=== PATIENT | female | born 2000 | race Asian ===

== ENCOUNTER 2021-09-27 15:16 | Emergency (ER) | payer OTHER ==
[2021-09-27 15:45] LABS: BILIRUBIN,URINE NEGATIVE (NEGATIVE); GLUCOSE, URINE (UA) NEGATIVE (NEGATIVE); KETONES,URINE (UA) NEGATIVE (NEGATIVE); LEUKOCYTE ESTERASE, URINE NEGATIVE (NEGATIVE); NITRITE,URINE NEGATIVE (NEGATIVE); OCCULT BLOOD,URINE NEGATIVE (NEGATIVE); PROTEIN,URINE NEGATIVE (NEGATIVE); UROBILINOGEN,URINE 0.2 (NORMAL) E.U./dL (NORMAL)
[2021-09-27 15:49] LABS: CLARITY,URINE CLEAR (CLEAR); HCG UR QUAL NEGATIVE
[2021-09-27] MEDS ORDERED: SODIUM CHLORIDE 0.9% 1,000 ML IV STA (15:49)
[2021-09-27] MEDS ORDERED: ONDANSETRON 4 MG/2 ML VIAL IVP STA (15:49)
--- NOTE | 2021-09-27 15:50 | ED Physician Documentation ---
History of Present Illness - Stated complaint Stated Complaint: UPSET STOMACH - Chief complaint Chief Complaint: Abd Pain - History obtained from History obtained from: Patient - Additonal information Additional information: Otherwise healthy 20-year-old woman presents with mild abdominal pain and significant vomiting after eating a lot of street food last night. She denies fevers or diarrhea. No sick contacts or recent travel. Review of Systems Constitutional: denies: Fever, Chills Cardiac: denies: Pedal edema, Calf pain Respiratory: denies: Dyspnea, Cough GI: reports: Abdominal Pain, Nausea, Vomiting. denies: Constipation, Diarrhea : denies: Dysuria PD PAST MEDICAL HISTORY - Present Medications Home Medications: Ambulatory Orders Medication Instructions Recorded Confirmed Ondansetron Odt [Zofran] 4 mg TL Q6H PRN #10 tablet 09/27/21 - Allergies Allergies/Adverse Reactions: Allergies Allergy/AdvReac Type Severity Reaction Status Date / Time No Known Drug Allergies Allergy Verified 09/27/21 15:27 PD ED PE NORMAL - Vitals Vital signs reviewed: Yes - General General: Alert and oriented X 3, No acute distress - HEENT HEENT: PERRL, EOMI - Neck Neck: Supple, no meningeal sign, No bony TTP - Cardiac Cardiac: RRR (Some variability consistent with sinus arrhythmia), No murmur - Respiratory Respiratory: No respiratory distress, Clear bilaterally - Abdomen Abdomen: Normal bowel sounds, Soft, Non tender - Neuro Neuro: Alert and oriented X 3, Normal speech Results - Vitals Vitals: Vital Signs - 24 hr 09/27/21 09/27/21 15:23 15:26 Temperature 36.7 C 36.2 C L Heart Rate 66 65 Respiratory 16 18 Rate Blood Pressure 120/73 118/62 O2 Saturation 98 100 Oxygen O2 Source Room air - Labs Labs: Laboratory Tests 09/27/21 09/27/21 15:33 15:52 Sodium 136 Potassium 3.9 Chloride 102 Carbon Dioxide 27 Anion Gap 7.0 BUN 11 Creatinine 0.6 Estimated GFR (MDRD) 129 Glucose 98 Calcium 9.5 Total Bilirubin 1.0 AST 14 ALT 11 Alkaline Phosphatase 60 Total Protein 7.2 Albumin 4.4 Globulin 2.8 Albumin/Globulin Ratio 1.6 Lipase 31 Urine Color YELLOW Urine Clarity CLEAR Urine pH 6.0 Ur Specific [place] 1.025 Urine Protein NEGATIVE Urine Glucose (UA) NEGATIVE Urine Ketones NEGATIVE Urine Occult Blood NEGATIVE Urine Nitrite NEGATIVE Urine Bilirubin NEGATIVE Urine Urobilinogen 0.2 (NORMAL) Ur Leukocyte Esterase NEGATIVE Ur Microscopic Review NOT INDICATED Urine Culture Comments NOT INDICATED Urine HCG, Qual NEGATIVE PD MEDICAL DECISION MAKING - ED course ED course: 20-year-old with vomiting alone. Metabolic panel is negative as is her urine and urine test. After the administration of IV fluids and Zofran she was feeling much better and passed p.o. challenge. Remained nontender on reevaluation at 4:55 PM. Given close return precautions. Departure - Departure Disposition: 01 Home, Self Care Clinical Impression: Vomiting Condition: Good Record reviewed to determine appropriate education?: Yes Instructions: ED Nausea Vomiting Prescriptions: Ondansetron Odt [Zofran] 4 mg TL Q6H PRN #10 tablet PRN Reason: Nausea / Vomiting Comments: Return if worse or if not completely better from all of your symptoms at 7 AM tomorrow.
[2021-09-27 16:09] LABS: ALBUMIN 4.4 g/dL (3.2-5.5); ALBUMIN/GLOBULIN RATIO 1.6 (1.0-2.2); CALCIUM 9.5 mg/dL (8.5-10.3); CREATININE 0.6 mg/dL (0.4-1.0); POTASSIUM 3.9 mmol/L (3.5-5.0); TOTAL PROTEIN 7.2 g/dL (6.7-8.2)
[2021-09-27 17:20] VITALS: BP 118/63
== END 2021-09-27 17:19 | disposition home or self-care (01) ==
LOC: ED 15:16
DX: R11.10 Vomiting, unspecified (principal)
CPT/HCPCS: 36415; 80053; 81001; 81003; 81025; 83690; 85025; 87086; 96361; 96374; 99282

== ENCOUNTER 2022-01-17 22:40 | Emergency (ER) | payer OTHER ==
[2022-01-17 23:02] LABS: BASOPHILS # (AUTO) 0.1 10^3/uL (0.0-0.1); BASOPHILS % (AUTO) 0.8 %; EOSINOPHILS # (AUTO) 0.1 10^3/uL (0.0-0.7); EOSINOPHILS % (AUTO) 0.8 %; HCT - HEMATOCRIT 41.6 % (37.0-47.0); HGB - HEMOGLOBIN 13.7 g/dL (12.0-16.0); LYMPHOCYTES % (AUTO) 23.7 %; MEAN CORPUSCULAR HEMOGLOBIN 29.1 pg (27.0-31.0); MEAN CORPUSCULAR HGB CONC 32.9 g/dL (32.0-36.0); MEAN CORPUSCULAR VOLUME 88.5 fL (81.0-99.0); MEAN PLATELET VOLUME 9.5 fL (7.9-10.8); MONOCYTES # (AUTO) 0.5 10^3/uL (0.0-1.0); MONOCYTES % (AUTO) 6.4 %; NEUTROPHILS # (AUTO) 5.8 10^3/uL (1.5-6.6); NEUTROPHILS % (AUTO) 67.9 %; PLT - PLATELET COUNT 329 10^3/uL (130-450); RED CELL DISTRIBUTION WIDTH 11.1 % (12.0-15.0); WHITE BLOOD COUNT 8.5 x10^3/uL (4.8-10.8)
[2022-01-17 23:16] LABS: ALBUMIN 4.5 g/dL (3.2-5.5); ALBUMIN/GLOBULIN RATIO 1.6 (1.0-2.2); ALKALINE PHOSPHATASE 68 IU/L (42-121); ALT ALANINE AMINOTRANSFERASE 17 IU/L (10-60); AST ASPARTATE AMINOTRANSFERASE 16 IU/L (10-42); BILIRUBIN,TOTAL 0.6 mg/dL (0.2-1.0); CREATININE 0.5 mg/dL (0.4-1.0); ETOH - ETHANOL < 5.0 mg/dL; GFR - MDRD 157 (>89); GLUCOSE 102 mg/dL (70-100); LIPASE 34 U/L (22-51); TOTAL PROTEIN 7.4 g/dL (6.7-8.2)
[2022-01-17 23:17] LABS: MUDS CUTOFF CONCENTRATIONS CUTOFF CONC BELOW:
--- NOTE | 2022-01-17 23:17 | ED Physician Documentation ---
History of Present Illness - Stated complaint Stated Complaint: HAVING A BAD DAY - Chief complaint Chief Complaint: MHE - History obtained from History obtained from: Patient, EMS - Additonal information Additional information: The patient is brought to the emergency department by EMS for chief complaint of suicidal ideation and depression. Patient states is been going on for about the last few months especially but had started before that. She states the stress of her job at the [employer], as well as root relationship issues which she will not further specify a, as being triggers. She states that prior to joining the [employer] a little over a year ago, she never struggled with depression. She has had suicidal thoughts on and off but has never made any attempts. She was started on sertraline a few months ago and states this seems to have made things worse. She states that she is not suicidal at this very moment, but has thought about overdosing on her sertraline to try to kill herself. She states she was confiding in a friend about the way she was feeling and the friend became concerned and called EMS. EMS states that they were concerned because the patient did have a specific plan and they convinced her to come in, even though she was not suicidal right at the moment. The patient states that her family does not live close by, but that she does close with her sister and does confide in her. No other complaints at this time. The patient states she is physically otherwise healthy. She denies taking any extra of her pills today or any other time. Review of Systems Ten Systems: 10 systems reviewed and negative Constitutional: reports: Reviewed and negative Eyes: reports: Reviewed and negative Ears: reports: Reviewed and negative Nose: reports: Reviewed and negative Throat: reports: Reviewed and negative Cardiac: reports: Reviewed and negative Respiratory: reports: Reviewed and negative GI: reports: Reviewed and negative : reports: Reviewed and negative Skin: reports: Reviewed and negative Musculoskeletal: reports: Reviewed and negative Neurologic: reports: Reviewed and negative Psychiatric: reports: Depressed, Suicidal Endocrine: reports: Reviewed and negative Immunocompromised: reports: Reviewed and negative PD PAST MEDICAL HISTORY - Present Medications Home Medications: Ambulatory Orders Medication Instructions Recorded Confirmed Sertraline [Zoloft] 75 mg PO DAILY 01/17/22 01/17/22 - Allergies Allergies/Adverse Reactions: Allergies Allergy/AdvReac Type Severity Reaction Status Date / Time No Known Drug Allergies Allergy Verified 09/27/21 15:27 PD ED PE NORMAL - Vitals Vital signs reviewed: Yes - General General: Alert and oriented X 3, No acute distress, Well developed/nourished - HEENT HEENT: Atraumatic, PERRL, EOMI, Moist mucous membranes - Neck Neck: Supple, no meningeal sign - Cardiac Cardiac: RRR, No murmur, Strong equal pulses - Respiratory Respiratory: No respiratory distress, Clear bilaterally - Abdomen Abdomen: Soft, Non tender, Non distended - Derm Derm: Normal color, Warm and dry, No rash, Other (No self-mutilation scars visible) - Extremities Extremities: No deformity - Neuro Neuro: Alert and oriented X 3, single corner cutter 2-12 intact, Normal speech, Other (Grossly intact) - Psych Psych: Other (The patient does answer questions, but is somewhat quiet and tearful.) Results - Vitals Vitals: Vital Signs - 24 hr 01/17/22 01/18/22 22:45 02:55 Temperature 36.6 C 36.3 C L Heart Rate 82 66 Respiratory 18 16 Rate Blood Pressure 136/99 H 107/70 O2 Saturation 100 99 Oxygen O2 Source Room air - Labs Labs: Laboratory Tests 01/17/22 01/17/22 01/17/22 22:57 22:57 23:07 WBC 8.5 RBC 4.70 Hgb 13.7 Hct 41.6 MCV 88.5 MCH 29.1 MCHC 32.9 RDW 11.1 L Plt Count 329 MPV 9.5 Neut # (Auto) 5.8 Lymph # (Auto) 2.0 [place] # (Auto) 0.5 Eos # (Auto) 0.1 Baso # (Auto) 0.1 Absolute Nucleated RBC 0.00 Nucleated RBC % 0.0 Sodium 136 Potassium 4.2 Chloride 104 Carbon Dioxide 23 Anion Gap 9.0 BUN 13 Creatinine 0.5 Estimated GFR (MDRD) 157 Glucose 102 H Calcium 9.5 Total Bilirubin 0.6 AST 16 ALT 17 Alkaline Phosphatase 68 Total Protein 7.4 Albumin 4.5 Globulin 2.9 Albumin/Globulin Ratio 1.6 Lipase 34 Urine HCG, Qual Urine Opiates Screen NEGATIVE Ur Oxycodone Screen NEGATIVE Urine Methadone Screen NEGATIVE Ur Propoxyphene Screen NEGATIVE Ur Barbiturates Screen NEGATIVE Ur Tricyclics Screen NEGATIVE Ur Phencyclidine Scrn NEGATIVE Ur Amphetamine Screen NEGATIVE U Methamphetamines Scrn NEGATIVE U Benzodiazepines Scrn NEGATIVE Urine Cocaine Screen NEGATIVE U Cannabinoids Screen NEGATIVE Ethyl Alcohol < 5.0 SARS-CoV-2 (PCR) 01/17/22 01/17/22 23:09 23:09 WBC RBC Hgb Hct MCV MCH MCHC RDW Plt Count MPV Neut # (Auto) Lymph # (Auto) [place] # (Auto) Eos # (Auto) Baso # (Auto) Absolute Nucleated RBC Nucleated RBC % Sodium Potassium Chloride Carbon Dioxide Anion Gap BUN Creatinine Estimated GFR (MDRD) Glucose Calcium Total Bilirubin AST ALT Alkaline Phosphatase Total Protein Albumin Globulin Albumin/Globulin Ratio Lipase Urine HCG, Qual NEGATIVE Urine Opiates Screen Ur Oxycodone Screen Urine Methadone Screen Ur Propoxyphene Screen Ur Barbiturates Screen Ur Tricyclics Screen Ur Phencyclidine Scrn Ur Amphetamine Screen U Methamphetamines Scrn U Benzodiazepines Scrn Urine Cocaine Screen U Cannabinoids Screen Ethyl Alcohol SARS-CoV-2 (PCR) NOT DETECTED PD MEDICAL DECISION MAKING - ED course Complexity details: reviewed results, re-evaluated patient, considered differential, d/w patient ED course: The patient was worked up with medical clearance labs, including CBC, CMP, EtOH level, urine drug screen, test, and COVID swab. Work-up was negative and the patient was medically cleared. Psychiatrist did evaluate the patient via telepsych and ultimately, after speaking with both the patient and her chief, felt the patient was stable for discharge home with outpatient mental health management. She recommended therapy for the patient, as well as that she be set up with a roommate through the [employer]. The telemetry psychiatrist also recommended that the patient only be given 1 week of her medication at a time until she has stabilized. We have discussed all these things and both the patient and her command are aware and agreeable. We have discussed the need for reaching out immediately for help, should she begin to feel unsafe with herself. Departure - Departure Disposition: 01 Home, Self Care Clinical Impression: Suicidal ideation Depression Qualifiers: Depression Type: major depressive disorder Major depression recurrence: recurrent Active/Remission status: currently active Major depression episode severity: moderate Qualified Code(s): F33.1 - Major depressive disorder, recurrent, moderate Condition: Stable Instructions: ED Depression Comments: After your meeting with the telemetry psychiatrist, she feels that you are stable for discharge home with outpatient mental health follow-up. She has recommended therapy and also, that you have a roommate. She is also recommended that you be given only 1 weeks worth of your medication at a time. Please work with your Chief and base medical to arrange the necessary follow-up and support for you while you are going through some difficult times. If you begin to feel significantly suicidal again and feel unsafe with yourself, please reach out immediately for help.
[2022-01-17 23:29] LABS: HCG UR QUAL NEGATIVE
[2022-01-17 23:30] LABS: AMPHETAMINE SCREEN,URINE NEGATIVE (NEGATIVE); BARBITURATE SCREEN,UR NEGATIVE (NEGATIVE); BENZODIAZEPINES SCREEN, URINE NEGATIVE (NEGATIVE); COCAINE SCREEN URINE NEGATIVE (NEGATIVE); METHADONE SCREEN, URINE NEGATIVE (NEGATIVE); METHAMPHETAMINES SCREEN, URINE NEGATIVE (NEGATIVE); OPIATE SCREEN, URINE NEGATIVE (NEGATIVE); OXYCODONE SCREEN, URINE NEGATIVE (NEGATIVE); PROPOXYPHENE SCREEN, URINE NEGATIVE (NEGATIVE); THC CANNABINOID SCREEN, URINE NEGATIVE (NEGATIVE); TRICYCLIC ANTIDEPRESSANT,URINE NEGATIVE (NEGATIVE)
[2022-01-17 23:41] LABS: BUN - BLOOD UREA NITROGEN 13 mg/dL (6-20); CALCIUM 9.5 mg/dL (8.5-10.3); CARBON DIOXIDE - CO2 23 mmol/L (21-32); CHLORIDE 104 mmol/L (101-111); POTASSIUM 4.2 mmol/L (3.5-5.0); SODIUM 136 mmol/L (135-145)
--- NOTE | 2022-01-18 05:52 | TELEPSYCH PHYS NOTE ---
Telepsych Consultation Note Consult: Array Name: Esperanza Arrington : 2000 Date and Time: 01/18/2022 7:54:56 AM Location of the patient: [facility] ED Location of the doctor: [place] Length of consult: 43 min This evaluation was conducted via video telepsychiatry with the assistance of onsite staff Reason for consult: Pt. reports SI/ W/Pills OD w/ Sertraline 20 Mil Pt. in the [employer] 1 year missing family . Pt. reports taking Sertraline Increasing the depression. Requested by: DR. SOLIS History of Present Illness: ? Parts of this note were dictated using voice recognition software and may contain small irregularities and grammatical errors which are unintentional. ? The identity of the patient was verified. The patient was then informed about the process of utilizing telemedicine for evaluation and treatment. Discussed the ability to Opt-out of the tele medicine encounter, ask questions, security issues, and sharing information. The patient consented to proceed with the tele medicine encounter. This evaluation was conducted via video telepsychiatry with assistance of onsite staff ? 21 year old female with a history of anxiety who presented to the emergency room with suicidal ideations and worsening depression. The patient was brought in by EMS after she had texted a friend stating that she is having thoughts of suicide. Her friend became worried and called EMS. She reports that she told him she was having some thoughts. She reports she's had increasing depression over the last one to two weeks after her Zoloft was increased from 50 milligrams to 75 milligrams she reports that she's been on the medication for three months and they increased it due to still having some feelings of being a little bit down. She reports since increasing it she's been stressed out and sad. She's in a long distant relationship that is falling apart. She feels as though her partner is blaming her for the following apart. She reports that her partner had moved to [place]. Her family's in [facility]. She reports the past few days she's been stressed out not sleeping. She can't fall asleep or stay asleep . She reports that she's been getting four to five hours of sleep period her appetite is good. Energy and motivation is good. She reports she has only had suicidal ideations twice over the last week. She wasn't planning on doing anything however she had the thought of overdosing last evening and that's when she called her friend because she couldn't do that to other people. She reports that she thinks about how it would affect other people and then she stops herself from thinking of it. She does report that last evening prior to the thought she had a discussion with her girlfriend who was blaming her and telling her that she is the reason that her partner's mental health is not good. She reports that she does not want to . She reports that she feels a lot better after talking to people. She feels a lot better when she talks to others. She denies homicidal ideations intent or plans. She denies auditory or visual hallucinations. Her chief officer was present for discussing safety measures. Attempted to contact her sister Rory [phone] and there was no answer at this time period however it is very early where she is at. Collateral Contacted: Yes Collateral name: Melonie Collateral phone number: [phone] Collateral relationship to the patient: Chief Sleep issues?: Yes Sleep Quantity: 4 to 5 Sleep Quality: Poor Psychiatric History/Treatment History: Past diagnoses: anxiety Hospitalizations: No Current Treatment:Yes Medication management: Yes Medications: Therapy: Yes [place] Suicide Assessment: PSS-3: 1) Over the past 2 weeks have you felt down, depressed or hopeless? Yes 2) Over the past 2 weeks have you had thoughts of killing yourself? Yes 3) Have you ever in your life attempted to kill yourself? No Within the past 6 months? PSS-3 Secondary Screen: 1) Positive on PSS-3 questions 2 & 3 active SI with a past attempt? Yes Description: fleeting and denies them currently 2) Have you been thinking about how you might kill yourself? Yes 3) Have you had some intention of acting on your thoughts? No 4) Lifetime psychiatric hospitalization? No 5) Has drinking or substance abuse ever been a problem for you? No 6) Current irritability, agitation, or aggression? No PSS-3 Secondary Screen Scoring: Moderate Notes: Mild (0-2) No current attempt and no plan/intent Moderate (3-4) No current attempt, Plan OR intent but not both Severe (5-6) Current Attempt with Plan AND intent [facility]-based Safety Assessment: Risk Factors Stressors: Pt. reports SI/ W/Pills OD w/ Sertraline 20 Mil Pt. in the [employer] 1 year missing family . Pt. reports taking Sertraline Increasing the depression. Attempts/Self-injury: No Impulsivity:Yes Description: Pt. does not want communicate Drug/Alcohol History:No Trauma History:No Access to firearms:No HI/Violence/Property destruction:No Legal: No Family Psych History:No Family History of suicide:No Protective Factors: Can handle stress well? No Congregational? Yes Description: Pt. does not want communicate External: Social supports/ Therapeutic relationships: Yes Description: Relationship history: Pt. Denies Living situation: [place] Employment: Yes Description: [employer] Education: HS. Grad Responsibility to family/children/work: Yes Description: [employer] Employed Future orientation:Yes Description: Health History: Medical History: Pt. Denies Medications & Freq: zoloft 50mg po q daily Allergies: Pt. Denies Mental Status Exam: Appearance and Attire: Good eye contact Psychomotor agitation: No abnormality Attitude and behavior: Cooperative Speech: Mood: Depressed Affect: Restricted Thought process: Coherent Thought content: Suicidal ideation, Homicidal ideation, Poverty of content, helplessness, suicide ideations are fleeting with no intent and has thought of overdose Perception: No hallucinations Intel: Average Abstract: Appropriate Language: No abnormality Orientation: Oriented x 4 Sense: Normal Knowledge: Appropriate for education and socioeconomic status Memory: Intact Insight: Moderate impairment Judgement: Moderate impairment Gait: No abnormality Impression/Risk Assessment: Current Suicide Risk Elevated? No Current Violence Risk Elevated? No Issues with ability to care for self? Yes Summary: 21 year old female with a history of anxiety who presented to the emergency room via EMS after she had reported some suicidal ideations and thoughts of overdosing. The patient denies currently of having suicidal ideations. She reports that they've been fleeting in nature this time was prompted by a discussion with her partner who appears to be trying to break up with her period the patient feels much better after talking this through. She does report some decreased sleep mainly because of stress of her relationship with her partner. Her appetite and energy are good. She denies intense or plans currently to kill herself. Her safety factors are her family and friends and how it would affect other people. She is very self-conscious. She denies auditory or visual hallucinations or homicidal ideations. At this time the patient does not appear to need inpatient psychiatric hospitalization. She reports these thoughts increased with the medication increase so we'll recommend to decrease her Zoloft back down to 50 milligrams. Do you recommend that patient have individual therapy weekly during this time of transition with her relationship in being away from family. Also would recommend that patient not being alone and have a roommate at this time Diagnosis: F43.23 Adjustment disorder with mixed anxiety and depressed mood CPT Codes: 84195 - Psychiatric Diagnostic Evaluation with Medical Services Treatment Plan: General: outpatient therapy weekly recommend only having a weeks worth of medication available at a time Level of Care: outpatient Psychiatric Clearance: Yes Observation level 1:1 needed?: No Pharmacological: zoloft 50mg po q hs melatonin 3-9 mg po q 2 hours prior to bed Patient psychotic?No Therapy: cbt Follow up needed while in the hospital?: No Discussed plan with onsite teamcenter consultant: Yes Who Dr. Solis Other: List names and roles of persons who participated in consult: Dr. Sujey Solis
[2022-01-18 06:02] VITALS: BP 114/72
== END 2022-01-18 06:02 | disposition home or self-care (01) ==
LOC: EDBD → EDUNIT# → ED 22:40
DX: F33.1 Major depressive disorder, recurrent, moderate (principal); F43.23 Adjustment disorder with mixed anxiety and depressed mood; Z20.822 Contact with and (suspected) exposure to COVID-19
CPT/HCPCS: 36415; 80053; 80306; 80320; 81025; 83690; 85025; 87635; 99283; 99284; G0425; Q3014

== ENCOUNTER 2022-05-14 14:30 | Outpatient (CLI) | payer OTHER ==
[2022-05-14 18:47] LABS: INFLUENZA A H1 2009- RESP PCR DETECTED; INFLUENZA B - RESP PCR PANEL NOT DETECTED; RSV- RESP PCR PANEL NOT DETECTED; SARS-CoV-2 -RESP PCR PANEL NOT DETECTED
== END 2022-05-14 14:45 | disposition home or self-care (01) ==
LOC: LAB.N 14:30
PROVIDERS: ATTEND Physician Assistant
DX: R50.9 Fever, unspecified (principal); Z20.822 Contact with and (suspected) exposure to COVID-19
CPT/HCPCS: 87637